=== PATIENT | female | born 1970 | race African-American/Black ===

== ENCOUNTER 2019-07-05 23:55 | Emergency (ER) | payer MEDICAID ==
[~2019-07-05] VITALS: Ht 162.6 cm; Wt 74.0 kg
[2019-07-06 00:57] VITALS: BP 132/76
== END 2019-07-06 01:45 | disposition left against medical advice (07) ==
LOC: ER 23:55
DX: Z53.21 Procedure and treatment not carried out due to patient leaving prior to being seen by health care provider (principal); Z91.81 History of falling